=== PATIENT | male | born 1955 | race Caucasian/White ===

== ENCOUNTER → 2016-12-08 | Outpatient (CLI) | payer OTHER | LOC: HEART 5 11:15 | DX: Z95.1 Presence of aortocoronary bypass graft (principal); I25.2 Old myocardial infarction; Z86.79 Personal history of other diseases of the circulatory system ==

== ENCOUNTER → 2021-02-25 | Outpatient (CLI) | payer BC ==
[~2021-02-25] MED LIST: AMIODARONE HCL200 MG PO; ASPIRIN EC81 MG PO; ATORVASTATIN CA20 MG PO; BETAPACE 80MG T80 MG PO; CLINORIL 200MG200 MG PO; COLACE 100MG C100 MG PO; COREG 25MG TAB25 MG PO; CRESTOR20 MG PO; ECOTRIN81 MG PO; ELIQUIS 5 MG TAB5 MG PO; ELIQUIS5 MG PO; FLOMAX0.4 MG PO; FUROSEMIDE40 MG PO; HYDRALAZINE HCL50 MG PO; LASIX40 MG PO; LIPITOR TAB 2020 MG PO; LOTENSIN40 MG PO; NORCO 5-325 TA1 EACH PO; NORVASC10 MG PO; OMEPRAZOLE20 M1 PO; PRILOSEC OTC20 MG PO; PRILOSEC PO; SOTALOL120 MG PO; TAMSULOSIN HCL0.4 MG PO; VIT D PO; VITAMIN D5000 UNIT PO
== END ==
LOC: HEART 5 11:21
DX: R06.02 Shortness of breath (principal); Z79.899 Other long term (current) drug therapy; J44.9 Chronic obstructive pulmonary disease, unspecified
CPT/HCPCS: 94060; 94729

== ENCOUNTER 2021-11-18 08:29 | Inpatient (IN) | payer BC, MEDICARE ==
[~2021-11-18] VITALS: Ht 177.8 cm; Wt 108.9 kg
[~2021-11-18 08:29] MED LIST changes: +SULINDAC200 MG PO; -VIT D PO; +VITAMIN D3125 MCG PO
[2021-11-18 09:19] LABS: HEMOGLOBIN 11.3 gm/dl (14.0-17.5); RED BLOOD COUNT 3.91 M/UL (4.20-5.50); WHITE BLOOD COUNT 8.8 K/UL (4.5-11.0)
[2021-11-18 09:46] LABS: BUN/CREATININE RATIO 22 (0-10)
[2021-11-18 15:27] LABS: BORDETELLA PARAPERTUSSIS Not Detected (Not Detectd); BORDETELLA PERTUSSIS Not Detected (Not Detectd); CHLAMYDIA PNEUMONIAE Not Detected (Not Detectd); CORONAVIRUS HKU1 Not Detected (Not Detectd); CORONAVIRUS NL63 Not Detected (Not Detectd); CORONAVIRUS OC43 Not Detected (Not Detectd); CORONOAVIRUS 229E Not Detected (Not Detectd); HUMAN METAPNEUMOVIRUS Not Detected (Not Detectd); HUMAN RHINOVIRUS/ENTEROVIRUS Not Detected (Not Detectd); INFLUENZA A Not Detected (Not Detectd); INFLUENZA B Not Detected (Not Detectd); MYCOPLASMA PNEUMONIAE Not Detected (Not Detectd); PARAINFLUENZA VIRUS 1 Not Detected (Not Detectd); PARAINFLUENZA VIRUS 2 Not Detected (Not Detectd); PARAINFLUENZA VIRUS 3 Not Detected (Not Detectd); PARAINFLUENZA VIRUS 4 Not Detected (Not Detectd); RESPIRATORY SYNCYTIAL VIRUS Not Detected (Not Detectd)
[2021-11-18] MEDS ORDERED: FINASTERIDE5 MG PO (17:06)
[2021-11-18] MEDS ORDERED: LOPRESSOR 25 MG25 MG PO (17:08)
[2021-11-18 17:19] LABS: SARS-CoV-2 NOT DETECTED (Not Detectd)
[2021-11-19 02:25] LABS: HEMOGLOBIN 10.6 gm/dl (14.0-17.5); RED BLOOD COUNT 3.65 M/UL (4.20-5.50); WHITE BLOOD COUNT 10.5 K/UL (4.5-11.0)
[2021-11-19 02:55] LABS: BUN/CREATININE RATIO 26 (0-10)
[2021-11-20 03:41] LABS: HEMOGLOBIN 12.1 gm/dl (14.0-17.5); RED BLOOD COUNT 4.19 M/UL (4.20-5.50); WHITE BLOOD COUNT 12.1 K/UL (4.5-11.0)
[2021-11-20 04:03] LABS: BUN/CREATININE RATIO 17 (0-10)
[2021-11-21 07:11] LABS: HEMOGLOBIN 12.9 gm/dl (14.0-17.5); RED BLOOD COUNT 4.48 M/UL (4.20-5.50); WHITE BLOOD COUNT 10.6 K/UL (4.5-11.0)
[2021-11-21 07:42] LABS: BUN/CREATININE RATIO 15 (0-10)
[2021-11-22 03:11] LABS: HEMOGLOBIN 13.2 gm/dl (14.0-17.5); RED BLOOD COUNT 4.59 M/UL (4.20-5.50); WHITE BLOOD COUNT 11.5 K/UL (4.5-11.0)
[2021-11-23 03:02] LABS: RED BLOOD COUNT 4.53 M/UL (4.20-5.50); WHITE BLOOD COUNT 11.3 K/UL (4.5-11.0)
[2021-11-23 03:36] LABS: BUN/CREATININE RATIO 25 (0-10)
[2021-11-23] MEDS ORDERED: LISINOPRIL10 MG PO (09:38)
[2021-11-23] MEDS ORDERED: FUROSEMIDE40 MG PO (09:38)
[2021-11-23] MEDS ORDERED: LOPRESSOR 50 MG50 MG PO (09:38)
[2021-11-23] MEDS ORDERED: CEFUROXIME250 MG PO (09:40)
== END 2021-11-23 13:38 | disposition home or self-care (01) | DRG 291 ==
LOC: ER1 08:29 → CDU 14:37 → MED SURG 4 14:37
PROVIDERS: Physician Assistant; Physician Assistant Medical; ADMIT Internal Medicine
PROC: B24BZZZ Ultrasonography of Heart with Aorta (ICD-10-PCS; principal; 2021-11-19)
DX: I11.0 Hypertensive heart disease with heart failure (principal); I50.33 Acute on chronic diastolic (congestive) heart failure; J96.21 Acute and chronic respiratory failure with hypoxia; N17.0 Acute kidney failure with tubular necrosis; I48.92 Unspecified atrial flutter; I48.20 Chronic atrial fibrillation, unspecified; Z20.822 Contact with and (suspected) exposure to COVID-19; E78.5 Hyperlipidemia, unspecified; I49.3 Ventricular premature depolarization; K21.9 Gastro-esophageal reflux disease without esophagitis; I08.1 Rheumatic disorders of both mitral and tricuspid valves; E66.9 Obesity, unspecified; J44.9 Chronic obstructive pulmonary disease, unspecified; I25.10 Atherosclerotic heart disease of native coronary artery without angina pectoris; F17.200 Nicotine dependence, unspecified, uncomplicated; N40.0 Benign prostatic hyperplasia without lower urinary tract symptoms; D64.9 Anemia, unspecified; Z95.1 Presence of aortocoronary bypass graft; Z88.8 Allergy status to other drugs, medicaments and biological substances; Z79.01 Long term (current) use of anticoagulants; Z79.899 Other long term (current) drug therapy; Z82.49 Family history of ischemic heart disease and other diseases of the circulatory system; Z79.82 Long term (current) use of aspirin; Z68.37 Body mass index [BMI] 37.0-37.9, adult
CPT/HCPCS: ECHO; 36415; 36600; 71045; 71046; 80048; 80053; 82550; 82553; 82803; 82962; 83605; 83735; 83874; 83880; 84100; 84484; 85025; 85027; 85379; 87040; 87633; 93005; 93306; 94640; 94664; 94760; 96374; 96375; 96376; 99285; J0692; J0696; J1100; J1205; J1940; J3370; J7070; Q9967; U0002

== ENCOUNTER → 2022-04-14 | Outpatient (CLI) | payer BC, MEDICARE ==
[~2022-04-14] MED LIST changes: +CEFUROXIME250 MG PO; +FINASTERIDE5 MG PO; +LISINOPRIL10 MG PO; +LOPRESSOR 25 MG25 MG PO; +LOPRESSOR 50 MG50 MG PO
== END ==
LOC: HEART 5 09:13
DX: R06.02 Shortness of breath (principal); Z79.899 Other long term (current) drug therapy
CPT/HCPCS: 94060; 94729